=== PATIENT | male | born 2000 | race Hispanic/Latino ===

== ENCOUNTER 2024-07-05 08:57 | Emergency (ER) | payer SELFPAY ==
[2024-07-05 09:06] VITALS: BP 122/79
[2024-07-05 09:17] VITALS: BMI 21.9
[2024-07-05 10:06] VITALS: BP 110/70
--- NOTE | 2024-07-05 10:33 | EDRN ---
Parveen Blanco PA in room w/ pt at this time.
--- NOTE | 2024-07-05 10:35 | ED.GENMED ---
History of Present Illness
General
Chief Complaint: Skin Surface Trauma
Source: patient
Time Seen by Provider: 07/05/24 10:19
History of Present Illness
History of Present Illness:
23-year-old male with no significant medical history presents to the emergency department for evaluation after accidentally dropping a metal table on his left ring finger sustaining skin tear of the cuticle/skin along the dorsal aspect of the distal
phalanx/nail. Patient is right-hand dominant, believes his tetanus vaccine is up-to-date, no other injuries were sustained.
Past History
Past History
ED Past Medical History: None
ED Past Surgical History: None
Social History
Tobacco: Non-smoker
Alcohol: None
Drug: None
Personal: Single
Living: with family
Employment: Employed
Review of Systems
Review of Systems
All Other Systems: ROS reviewed and negative except as documented in HPI and ROS
Phy Exam
Physical Exam
Physical Exam:
GENERAL: Alert , in no apparent distress
EYE: conjunctiva clear
Head: Normocephalic atraumatic
NECK: Supple,
ENT: mmm.
LUNGS: no acute respiratory distress
NEUROLOGICAL: Alert and oriented
SKIN: Warm and dry, very small subungual hematoma to the left ring finger. Skin is slightly a avulsed along the epidermal layer just proximal to the nail fold, no active bleeding. Tenderness over the mid distal phalanx
MUSCULOSKELETAL: well perfused.
PSYCH: Normal and appropriate interaction.
Scores
Heart Failure Risk
Heart Failure Risk Score: Not Applicable
Heart Score for Chest Pain Patients
STEMI patient?: Not applicable
Withdrawal Assessment of Alcohol
Withdrawal Assessment Completed?: Not applicable
Course
Orders/Labs/Results
Orders:
Orders
07/05/24 09:26
CR Finger(s)/thumb Min 2 Vw Lt Urgent
Comment:
Reason For Exam: pain injury, swelling
Indicate Which Finger:: Ring Finger
07/05/24 10:35
Aluminium Finger Splint Left ONCE
Ibuprofen [Motrin] 600 mg PO NOW STA
Vital Signs
Initial and Last Documented VS:
Initial Vital Signs
Temp Pulse BP Pulse Ox
98.3 F 66 122/79 100
07/05/24 09:06 07/05/24 09:06 07/05/24 09:06 07/05/24 09:06
Last Documented Vital Signs
Temp Pulse Resp BP Pulse Ox
98.3 F 55 14 110/70 98
07/05/24 09:06 07/05/24 10:06 07/05/24 10:06 07/05/24 10:06 07/05/24 10:06
MDM/Problems Addressed
Differential Diagnosis Includes:
Fracture, contusion, sprain, subungual hematoma
MDM/Problems Addressed:
23-year-old male presenting to the ER for evaluation following an accidental injury to the left ring finger. X-ray ordered from triage does show a angulated and slightly displaced fracture of the distal phalanx ring finger. The skin tear is not
amenable to any suture repair. Wound was irrigated with copious normal saline. Will apply dressed as well as finger splint for protection and comfort. Information for orthopedics provided. NSAIDs/Tylenol as needed for pain. Stable for discharge
home.
*Radiology
Radiology exam reviewed: preliminary read by ED provider (Slightly angulated and displaced fracture of the distal phalanx of the ring finger)
*Pulse Oximetry
Patient hypoxic: no
*Critical Care Note
Total Time (30-74mins, 75-104mins- exclusive of procedures): Not Applicable
ED Attending Note
-
Portions of this chart may have been created with voice recognition software.� Occasional wrong word or��sound alike� substitutions may have occurred due to the inherent limitations of voice recognition software.
Discharge Plan
Departure
Patient Disposition: Home (Routine Discharge)
Date of Disposition: 07/05/24
Time of Disposition: 10:36
Patient with high blood pressure during this ER visit?: No
Discharge Problem:
Closed fracture of distal phalanx of left ring finger
Instructions: Finger Fracture ED
Prescriptions:
New
cephalexin 500 mg tablet
500 mg PO BID 5 Days Qty: 10 0RF
Referrals:
Bernard Salazar MD [Active] - (Ortho - Hand Specialist)
Interventions
Interventions:
*Risk Screen - Suicide Last Done: 07/05/24 09:06
*General Assessment Last Done: 07/05/24 09:17
*Neglect/Abuse Screening Last Done: 07/05/24 09:21
*ED- Fall Risk Assessment Last Done: 07/05/24 09:17
*ED COVID-19 Vaccine History Last Done: 07/05/24 09:17
*Nursing Disposition Last Done: 07/05/24 11:08
ED-Skin Assessment Last Done: 07/05/24 09:24
Discharge Date and Time
Discharge Date/Time: 07/05/24 11:09
Print Language: CAMEROONIAN
[2024-07-05] MEDS: MOTRIN 600 MG PO (10:44)
--- NOTE | 2024-07-05 11:07 | EDRN ---
L ring finger #4 cleansed extensively w/ soap and water by pt at sink then dressed w/ double antibiotic bipin, telfa non stick, finger splint and tubi foreclosure home [employer].
== END 2024-07-05 11:09 | disposition home or self-care (01) ==
LOC: EMR 08:57
PROVIDERS: EMERGENCY PHYSICIAN Emergency Medicine
DX: S62.635B Displaced fracture of distal phalanx of left ring finger, initial encounter for open fracture (principal); W20.8XXA Other cause of strike by thrown, projected or falling object, initial encounter
CPT/HCPCS: 99283; 29130; 73140